=== PATIENT | male | born 1950 | race Caucasian/White ===

== ENCOUNTER → 2023-11-19 | Day surgery (SDC) | payer MEDICARE ==
[~2023-11-19] MED LIST: Iopamidol-M 200 41% 20 ML VIAL ONE; Lidocaine 1% PF 5 ML VIAL ONE; Sodium Bicarbonate 2.5 MEQ/5 ML SDV ONE
== END ==
LOC: CSHRAD 09:50
PROVIDERS: ATTEND Neurological Surgery
PROC: B02BYZZ Computerized Tomography (CT Scan) of Spinal Cord using Other Contrast (ICD-10-PCS; principal; 2023-11-19)
DX: M48.062 Spinal stenosis, lumbar region with neurogenic claudication (principal); M47.816 Spondylosis without myelopathy or radiculopathy, lumbar region
CPT/HCPCS: 62304; 72132